=== PATIENT | male | born 1970 | race American Indian/Alaskan Native ===

== ENCOUNTER 2017-08-27 17:50 | Emergency (ER) | payer MEDICAID, OTHER ==
[2017-08-27 18:25] VITALS: BP 112/70
--- NOTE | 2017-08-27 19:33 | Emergency Department Report ---
- General Chief Complaint: Upper Respiratory Infection Stated Complaint: PAIN ACROSS EYES/SORE THROAT Time Seen by Provider: 08/27/17 19:11 Source: patient Mode of arrival: Ambulatory Limitations: No Limitations - History of Present Illness Initial Comments: 47yo MALE WITH ONE WEEK OF COUGH,FEVER,BURNING THROAT PAIN,HEADACHE. HE DENIES SICK CONTACTS . HE HAS BEEN TREATINF HIMSELF WITH OTC MEDICATIONS AND TOOK OFF TODAY FROM WORK. PT WOULD LIKE A WORK NOTE. HE IS A FORMER SMOKER MD Complaint: fever, cough, sore throat, rhinorrhea, nasal congestion -: Gradual, week(s) (1) Severity: mild Severity scale (0 -10): 2 Quality: burning, aching Consistency: intermittent Improves With: nothing Worsens With: nothing Associated Symptoms: fever, headache, rhinorrhea, nasal congestion, sore throat , cough Treatments Prior to Arrival: "cold medicine" - Related Data Previous Rx's Medication Instructions Recorded Last Taken Type ALBUTEROL Inhaler [Proair] 2 puff IH QID PRN #1 inhalation 08/27/17 Unknown Rx Dexamethasone [Decadron] 12 mg PO ONCE #3 tablet 08/27/17 Unknown Rx Allergies Allergy/AdvReac Type Severity Reaction Status Date / Time No Known Allergies Allergy Unverified 08/27/17 18:25 ED Review of Systems ROS: Stated complaint: PAIN ACROSS EYES/SORE THROAT Other details as noted in HPI Constitutional: fever. denies: chills Eyes: denies: eye pain, eye discharge, vision change ENT: congestion. denies: ear pain, throat pain Respiratory: denies: cough, shortness of breath, wheezing Cardiovascular: denies: chest pain, palpitations Endocrine: no symptoms reported Gastrointestinal: denies: abdominal pain, nausea, diarrhea Genitourinary: denies: urgency, dysuria Musculoskeletal: denies: back pain, joint swelling, arthralgia Skin: denies: rash, lesions Neurological: denies: headache, weakness, paresthesias Psychiatric: denies: anxiety, depression Hematological/Lymphatic: denies: easy bleeding, easy bruising ED Past Medical Hx - Past Medical History Previous Medical History?: No - Family History Family history: diabetes, hypertension - Social History Smoking Status: Former Smoker Substance Use Type: None - Medications Home Medications: Home Medications Medication Instructions Recorded Confirmed Last Taken Type ALBUTEROL Inhaler [Proair] 2 puff IH QID PRN #1 inhalation 08/27/17 Unknown Rx Dexamethasone [Decadron] 12 mg PO ONCE #3 tablet 08/27/17 Unknown Rx ED Physical Exam - General Limitations: No Limitations General appearance: alert, in no apparent distress - Head Head exam: Present: atraumatic, normocephalic - Eye Eye exam: Present: normal appearance - ENT ENT exam: Present: mucous membranes moist, other (erythema inoropharynx) - Neck Neck exam: Present: normal inspection - Respiratory Respiratory exam: Present: normal lung sounds bilaterally. Absent: respiratory distress - Cardiovascular Cardiovascular Exam: Present: regular rate, normal rhythm. Absent: systolic murmur, diastolic murmur, rubs, gallop - GI/Abdominal GI/Abdominal exam: Present: soft, normal bowel sounds - Rectal Rectal exam: Present: deferred - Extremities Exam Extremities exam: Present: full ROM. Absent: pedal edema - Back Exam Back exam: Present: full ROM - Neurological Exam Neurological exam: Present: alert, oriented X3 - Psychiatric Psychiatric exam: Present: normal affect, normal mood - Skin Skin exam: Present: warm, dry, intact, normal color. Absent: rash ED Course Vital Signs 08/27/17 18:21 Temperature 100 F H Pulse Rate 88 Respiratory 20 Rate Blood Pressure 112/70 O2 Sat by Pulse 100 Oximetry Critical care attestation.: If time is entered above; I have spent that time in minutes in the direct care of this critically ill patient, excluding procedure time. ED Disposition Clinical Impression: Bronchitis Disposition: DC-01 TO HOME OR SELFCARE Is pt being admited?: No Does the pt Need Aspirin: No Condition: Stable Instructions: Acute Bronchitis (ED) Prescriptions: ALBUTEROL Inhaler [Proair] 2 puff IH QID PRN #1 inhalation PRN Reason: Shortness Of Breath Dexamethasone [Decadron] 12 mg PO ONCE #3 tablet Referrals: PRIMARY CARE, [Primary Care Provider] - 3-5 Days Forms: Work/School Release Form(ED) Time of Disposition: 19:33
[2017-08-27] MEDS ORDERED: MOTRIN PO ONE (19:37)
[2017-08-27] MEDS ORDERED: TYLENOL PO ONE (19:37)
== END 2017-08-27 19:50 | disposition home or self-care (01) ==
LOC: ED 17:50
DX: J40 Bronchitis, not specified as acute or chronic (principal); Z87.891 Personal history of nicotine dependence
CPT/HCPCS: 99282

== ENCOUNTER 2017-11-20 14:01 | Emergency (ER) | payer BC, OTHER ==
[2017-11-20] MEDS ORDERED: ASPIRIN PO ONE (14:35)
[2017-11-20 14:59] LABS: Basophils % (Auto) 0.3 % (0.0-1.8); Eosinophils # (Auto) 0.1 K/mm3 (0.0-0.4); Eosinophils % (Auto) 1.8 % (0.0-4.3); Hematocrit 43.9 % (35.5-45.6); Hemoglobin 14.8 gm/dl (11.8-15.2); Lymphocytes # (Auto) 2.4 K/mm3 (1.2-5.4); Lymphocytes % (Auto) 45.2 % (13.4-35.0); Mean Corpuscular HGB Conc 34 % (32-34); Mean Corpuscular Hemoglobin 30 pg (28-32); Mean Corpuscular Volume 89 fl (84-94); Monocytes # (Auto) 0.5 K/mm3 (0.0-0.8); Monocytes % (Auto) 9.8 % (0.0-7.3); Platelet Count 202 K/mm3 (140-440); Red Blood Count 4.92 M/mm3 (3.65-5.03); Red Cell Distribution Width 13.8 % (13.2-15.2)
[2017-11-20 15:15] LABS: BUN/Creatinine Ratio 8; Blood Urea Nitrogen 7 mg/dL (9-20); Calcium 8.9 mg/dL (8.4-10.2); Hemolysis Index 4
[2017-11-21] MEDS ORDERED: TESSALON PERLES PO ONE (01:19)
[2017-11-21] MEDS ORDERED: TYLENOL #3 PO ONE (01:20)
[2017-11-21] MEDS ORDERED: MUCINEX ER PO ONE (01:20)
--- NOTE | 2017-11-21 01:26 | Emergency Department Report ---
HPI - General Chief Complaint: Chest Pain Time Seen by Provider: 11/21/17 00:23 - HPI HPI: The patient is a 47-year-old male who presents for evaluation of cough and chest pain. The patient reports a mild intermittent nonproductive cough since 2 AM last night, and oriented off achy in quality bilateral chest pain, mild, currently 5/10 in severity, exacerbated with coughing. He shares that he has a history of recurrent bronchitis. The patient denies trauma to the chest, syncope , dyspnea, hemoptysis, unilateral leg swelling, recent immobilization, history of DVT or PE, recent cancer. ED Past Medical Hx - Past Medical History Previous Medical History?: No - Surgical History Past Surgical History?: No - Social History Smoking Status: Never Smoker Substance Use Type: Alcohol - Medications Home Medications: Home Medications Medication Instructions Recorded Confirmed Last Taken Type ALBUTEROL Inhaler [Proair] 2 puff IH QID PRN #1 inhalation 08/27/17 Unknown Rx Dexamethasone [Decadron] 12 mg PO ONCE #3 tablet 08/27/17 Unknown Rx ALBUTEROL Inhaler [ProAir HFA 2 puff IH QID PRN #1 inhalation 11/21/17 Unknown Rx Inhaler] Benzonatate [Tessalon Perles] 100 mg PO Q8HR #14 capsule 11/21/17 Unknown Rx traMADol [Ultram 50 MG tab] 50 mg PO Q6HR PRN #15 tablet 11/21/17 Unknown Rx ED Review of Systems ROS: Stated complaint: CHEST TIGHTNESS Other details as noted in HPI Constitutional: denies: fever ENT: denies: throat or neck pain Respiratory: reports cough denies shortness of breath Cardiovascular: reports chest pain Endocrine: denies unexplained weight loss or gain Gastrointestinal: denies: abdominal pain, nausea Genitourinary: denies: dysuria Musculoskeletal: denies: leg swelling Skin: denies: rash Neurological: denies: headache Hematological/Lymphatic: denies: easy bleeding or easy bruising Psych: denies sadness or hopelessness Physical Exam - Physical Exam Vital Signs: Vital Signs 11/20/17 11/20/17 11/21/17 14:30 23:54 00:33 Temperature 98.8 F 98.0 F Pulse Rate 70 65 82 Respiratory 18 18 16 Rate Blood Pressure 130/90 125/77 O2 Sat by Pulse 99 98 97 Oximetry 11/21/17 00:36 Temperature Pulse Rate Respiratory 18 Rate Blood Pressure O2 Sat by Pulse 99 Oximetry Physical Exam: General: well-nourished, well-developed, no acute distress Head: Normocephalic, atraumatic Eyes: normal sclera ENT: Mucous membranes are pink and moist Neck: trachea midline, neck supple, No neck stiffness, no cervical adenopathy Respiratory: Breath sounds equal bilaterally, no wheezing, rales, or rhonchi Cardio: S1 and S2 present, no murmurs, rubs, gallops, capillary refill is brisk Abdomen: Normoactive bowel sounds, soft abdomen, no rigidity, no guarding or rebound tenderness Chest WALL/Back: No tenderness to palpation of the chest wall, no CVA tenderness with percussion Musc: No pitting edema Skin: No rash Neuro: no facial drooping, normal speech Psych: Normal affect ED Course Vital Signs 11/20/17 11/20/17 11/21/17 14:30 23:54 00:33 Temperature 98.8 F 98.0 F Pulse Rate 70 65 82 Respiratory 18 18 16 Rate Blood Pressure 130/90 125/77 O2 Sat by Pulse 99 98 97 Oximetry 11/21/17 00:36 Temperature Pulse Rate Respiratory 18 Rate Blood Pressure O2 Sat by Pulse 99 Oximetry ED Medical Decision Making - Lab Data Result diagrams: 11/20/17 14:42 11/20/17 14:42 - Medical Decision Making The patient was seen and examined by myself. The patient is placed on a automatic thread winder and continuous pulse ox. On initial evaluation, the patient was found to be in no distress. EKG was negative for findings suggestive of acute cardiac infarct. Labs and imaging are obtained. The patient is given Tessalon Perles for cough and Tylenol 3 for his pain. Chest x-ray is negative for pneumothorax, focal consolidation, pulmonary vascular congestion, pleural effusion, or other obvious acute cardiopulmonary disease process. Lab results were non-concerning including levels of troponin, WBC, hemoglobin, hematocrit, electrolytes, renal function. The patient was reevaluated and reported that their symptoms were markedly improved. As the patient has a TEJAL risk score less than 2, and a well's score less than 2, the patient is at low risk of ACS or pulmonary emboli etiology of their symptoms. The patient is stable for discharge with outpatient follow-up. The patient is given follow-up and return instructions. The patient expressed understanding and agreed with the plan. The patient is discharged in stable condition. Critical care attestation.: If time is entered above; I have spent that time in minutes in the direct care of this critically ill patient, excluding procedure time. ED Disposition Clinical Impression: Acute chest pain Bronchitis, acute Qualifiers: Bronchitis organism: unspecified organism Qualified Code(s): J20.9 - Acute bronchitis, unspecified Disposition: - TO HOME OR SELFCARE Is pt being admited?: No Does the pt Need Aspirin: No Condition: Stable Instructions: Chest Pain (ED), Acute Bronchitis (ED) Referrals: MORA ABEBE MD [Primary Care Provider] - 3-5 Days Time of Disposition: 01:
--- NOTE | 2017-11-21 01:28 | XRay Report ---
FINAL REPORT EXAM: XR CHEST 1V AP HISTORY: chest pain TECHNIQUE: An AP view of the chest was submitted. There are no previous studies available for comparison. FINDINGS: Heart size and mediastinum appear normal. The thoracic aorta is mildly tortuous. The lungs are clear. There is no evidence of congestion or pleural effusion. The bones and soft tissues appear well maintained IMPRESSION: No active chest disease.
[2017-11-21 03:07] VITALS: BP 114/77
== END 2017-11-21 03:07 | disposition home or self-care (01) ==
LOC: ED 14:01
DX: J20.9 Acute bronchitis, unspecified (principal)
CPT/HCPCS: 36415; 71045; 80048; 84484; 85025; 93005; 93010; 99284

== ENCOUNTER 2018-02-07 22:48 | Emergency (ER) | payer BC ==
[2018-02-07 22:57] VITALS: BP 135/83
--- NOTE | 2018-02-08 05:23 | Emergency Department Report ---
Vomiting/Diarrhea - HPI Chief Complaint: Nausea/Vomiting/Diarrhea Stated Complaint: ABD PAIN Time Seen by Provider: 02/08/18 04:53 Duration: Today Severity: mild Nausea/Vomiting Severity: Mild Diarrhea Severity: None Pain Location: Generalized (generalized cramp this morning but none now) Symptoms: Yes Able to Tolerate Fluids, Yes Recent Unusual Foods (patient said he ate a hot dog this morning and he had one episode of vomiting in and has not vomited since.), No Watery Diarrhea, No Bloody diarrhea, No Fever, No Recent Untreated Water, No Recent use of Antibiotics, No Family w/ Similar Symptoms, No Contacts w/ Similar Symptoms, No Rash, No Hematuria, No Recent URI Symptoms Other History: Patient here reports that he had hot dog this morning and he vomited times one large amount of vomit and then after that he did not vomit again. He said after he ate a hot dog he had some abdominal cramping but he is not having any at this moment. Pain at present is 0-10. Denies any diarrhea. Denies any cough, fever, chills, chest pain or shortness of breath. Patient said he is much better. He said he is able to tolerate fluid and he drank Coke without any vomiting. Denies that he is feeling better but he just wanted to be checked out. ED Review of Systems ROS: Stated complaint: ABD PAIN Other details as noted in HPI Comment: All other systems reviewed and negative Constitutional: no symptoms reported Eyes: denies: eye discharge, vision change ENT: denies: throat pain, congestion Respiratory: no symptoms reported Cardiovascular: denies: chest pain, palpitations, dyspnea on exertion, orthopnea , edema, syncope, paroxysmal nocturnal dyspnea Gastrointestinal: abdominal pain, nausea, vomiting. denies: diarrhea, constipation, hematemesis, melena, hematochezia Genitourinary: denies: dysuria, hematuria Musculoskeletal: denies: back pain, joint swelling, arthralgia, myalgia Skin: denies: rash Neurological: denies: headache, weakness, numbness, paresthesias, confusion, abnormal gait, vertigo ED Past Medical Hx - Past Medical History Previous Medical History?: Yes Additional medical history: bronchitis - Surgical History Past Surgical History?: No - Family History Family history: no significant - Social History Smoking Status: Current Every Day Smoker Substance Use Type: None - Medications Home Medications: Home Medications Medication Instructions Recorded Confirmed Last Taken Type ALBUTEROL Inhaler [Proair] 2 puff IH QID PRN #1 inhalation 08/27/17 Unknown Rx Dexamethasone [Decadron] 12 mg PO ONCE #3 tablet 08/27/17 Unknown Rx ALBUTEROL Inhaler [ProAir HFA 2 puff IH QID PRN #1 inhalation 11/21/17 Unknown Rx Inhaler] Benzonatate [Tessalon Perles] 100 mg PO Q8HR #14 capsule 11/21/17 Unknown Rx traMADol [Ultram 50 MG tab] 50 mg PO Q6HR PRN #15 tablet 11/21/17 Unknown Rx Ondansetron [Zofran Odt] 4 mg PO Q8H PRN #15 tab.rapdis 02/08/18 Unknown Rx Vomiting Diarrhea Exam - Exam General: Vital signs noted. No distress. Alert and acting appropriately. This is a 48-year-old male well-nourished well-developed in no acute distress. HEENT: Yes Moist Mucous Membranes, No Pharyngeal Erythema (no [employer]), No Pharyngeal Exudates (uvula midline, tongue is normal and oral airways patent), No Rhinorrhea, No Conjuctival Injection, No Frontal Tenderness, No Maxillary Tenderness Neck: No Adenopathy, No Rigidity (full range of motion and no C-spine tenderness. Supple) Lungs: Yes Clear Lung Sounds (CTAB), Yes Good Air Exchange, No Wheezes, No Stridor, No Cough, No Nasal Flaring, No Retractions, No Use of Accessory Muscles Heart exam: Regular: Yes (S1 and S2), Murmur: No, Tachycardia: No Abdomen: Tenderness: No (nontender to palpate in all quadrants), Peritoneal Signs: No, Distention: No, Hyperactive Bowel sounds: No (normal bowel sounds) Skin exam: Rash: No, Edema: No, Normal turgor: Yes (skin clean dry and intact no rash nor lesions) Neurologic: Alert and oriented, no deficits. Neurological: Alert and oriented 3, GCS of 15, speech is clear and fluid. No facial droop in an gait is normal. Musculoskeletal: Unremarkable. MSK/extremity: No clubbing, cyanosis or edema. +2 pulses all extremities and no neurovascular compromise. Full range of motion in all extremities. ED Course Vital Signs 02/07/18 02/07/18 22:52 23:39 Temperature 98.6 F 98.6 F Pulse Rate 74 74 Respiratory 16 16 Rate Blood Pressure 135/83 135/83 O2 Sat by Pulse 95 95 Oximetry - Reevaluation(s) Reevaluation #1: 02/08/18 05:38 Patient able to tolerate oral liquids in emergency room without any episode of vomiting or diarrhea. He denies any nausea. ED Medical Decision Making - Medical Decision Making ED course:Pt here report that he ate hotdogs and had one episode of vomiting and he is here to be checked out although he is feeling better. Patient did not vomit since he's been in emergency room and is able to tolerate oral liquids. Patient said that he was able to drink Coke after episode without any nausea or vomiting. Physical findings or normal. I discussed patient that he had probably had contaminated food and he vomited and felt better which is what his body supposed to do. He is no longer experiencing any nausea vomiting or abdominal pain. I discussed with him I will give him Zofran ODT prescription if he becomes nauseous but otherwise follow up with his primary care physician and if he does not have one to follow up at [facility]. Critical care attestation.: If time is entered above; I have spent that time in minutes in the direct care of this critically ill patient, excluding procedure time. ED Disposition Clinical Impression: Abdominal cramping, generalized Nausea with vomiting Qualifiers: Vomiting type: unspecified Vomiting Intractability: non-intractable Qualified Code(s): R11.2 - Nausea with vomiting, unspecified Disposition: DC-01 TO HOME OR SELFCARE Is pt being admited?: No Does the pt Need Aspirin: No Condition: Stable Instructions: Acute Nausea and Vomiting (ED), Abdominal Pain (ED) Additional Instructions: Please then diet over the next 72 hours to include banana, rice, applesauce and toast. Increase her fluid intake to include water and noncarbonated beverages. If his symptoms return, return to the emergency room otherwise follow-up with primary care physician or [facility]. Take Zofran if you become nauseous Prescriptions: Ondansetron [Zofran Odt] 4 mg PO Q8H PRN #15 tab.rapdis PRN Reason: Nausea And Vomiting Referrals: DIANDRA RIOS MD [Staff Physician] - 02/09/18 [facility] [Outside] - 02/09/18 Forms: Work/School Release Form(ED)
== END 2018-02-08 05:50 | disposition home or self-care (01) ==
LOC: ED 22:48
DX: R10.84 Generalized abdominal pain (principal); R11.2 Nausea with vomiting, unspecified; F17.200 Nicotine dependence, unspecified, uncomplicated
CPT/HCPCS: 99281

== ENCOUNTER 2018-04-13 07:11 | Emergency (ER) | payer BC ==
[2018-04-13 08:04] VITALS: BP 125/79
[2018-04-13] MEDS ORDERED: TORADOL IM ONE (09:40)
--- NOTE | 2018-04-13 09:43 | Emergency Department Report ---
ED Abdominal Pain HPI - General Chief Complaint: Medical Clearance Stated Complaint: LUMP IN ABD Source: patient Mode of arrival: Ambulatory Limitations: No Limitations - History of Present Illness Initial Comments: 48-year-old male with a past medical history bronchitis and no abdominal surgeries presents to the hospital complaints of abdominal pain since this morning. Patient has a bulging area above his umbilicus that was just noticed today. Pain is moderate, aching, constant, worse with palpation and movement. He denies nausea, vomiting, constipation, diarrhea, or fever. Denies any previous history of hernia. Severity scale (0 -10): 0 - Related Data Previous Rx's Medication Instructions Recorded Last Taken Type ALBUTEROL Inhaler [Proair] 2 puff IH QID PRN #1 inhalation 08/27/17 Unknown Rx RX: Dexamethasone [Decadron] 12 mg PO ONCE #3 tablet 08/27/17 Unknown Rx Benzonatate [Tessalon Perles] 100 mg PO Q8HR #14 capsule 11/21/17 Unknown Rx RX: ALBUTEROL Inhaler [ProAir HFA 2 puff IH QID PRN #1 inhalation 11/21/17 Unknown Rx Inhaler] RX: traMADol [Ultram 50 MG tab] 50 mg PO Q6HR PRN #15 tablet 11/21/17 Unknown Rx Ondansetron [Zofran Odt] 4 mg PO Q8H PRN #15 tab.rapdis 02/08/18 Unknown Rx Ibuprofen [Motrin] 800 mg PO Q8HR PRN #30 tablet 04/13/18 Unknown Rx Allergies Allergy/AdvReac Type Severity Reaction Status Date / Time No Known Allergies Allergy Verified 11/21/17 00:31 ED Review of Systems ROS: Stated complaint: LUMP IN ABD Other details as noted in HPI Comment: All other systems reviewed and negative ED Past Medical Hx - Past Medical History Previous Medical History?: No Additional medical history: bronchitis - Social History Smoking Status: Current Every Day Smoker - Medications Home Medications: Home Medications Medication Instructions Recorded Confirmed Last Taken Type ALBUTEROL Inhaler [Proair] 2 puff IH QID PRN #1 inhalation 08/27/17 Unknown Rx RX: Dexamethasone [Decadron] 12 mg PO ONCE #3 tablet 08/27/17 Unknown Rx Benzonatate [Tessalon Perles] 100 mg PO Q8HR #14 capsule 11/21/17 Unknown Rx RX: ALBUTEROL Inhaler [ProAir HFA 2 puff IH QID PRN #1 inhalation 11/21/17 Unknown Rx Inhaler] RX: traMADol [Ultram 50 MG tab] 50 mg PO Q6HR PRN #15 tablet 11/21/17 Unknown Rx Ondansetron [Zofran Odt] 4 mg PO Q8H PRN #15 tab.rapdis 02/08/18 Unknown Rx Ibuprofen [Motrin] 800 mg PO Q8HR PRN #30 tablet 04/13/18 Unknown Rx ED Physical Exam - General Limitations: No Limitations - Other Other exam information: General: No limitations, patient is alert in no acute distress Head exam: Atraumatic, normocephalic Eyes exam: Normal appearance ENT: Moist mucous membrane, normal oropharynx Neck exam: Normal inspection, full range of motion, no meningismus nontender Respiratory exam: Clear to auscultation bilateral, no wheezes, rales, crackles Cardiovascular: Normal rate and rhythm, normal heart sounds Abdomen: Soft, nondistended, probable hernia above the umbilicus that is reducible at the bedside. Residual defect and fascia palpated after reduction Extremity: Full range of motion normal inspection no deformity Back: Normal Inspection, full range of motion, no tenderness Neurologic: Alert, oriented x3, cranial nerves intact, no motor or sensory deficit Psychiatric: normal affect, normal mood Skin: Warm, dry, intact ED Course Vital Signs 04/13/18 07:59 Temperature 97.7 F Pulse Rate 68 Respiratory 16 Rate Blood Pressure 125/79 [Left] O2 Sat by Pulse 98 Oximetry ED Medical Decision Making - Lab Data Result diagrams: 04/13/18 10:12 04/13/18 10:09 Lab Results 04/13/18 04/13/18 Range/Units 10:09 10:12 WBC 5.4 (4.5-11.0) K/mm3 RBC 4.75 (3.65-5.03) M/mm3 Hgb 14.4 (11.8-15.2) gm/dl Hct 42.1 (35.5-45.6) % MCV 89 (84-94) fl MCH 30 (28-32) pg MCHC 34 (32-34) % RDW 14.1 (13.2-15.2) % Plt Count 195 (140-440) K/mm3 Lymph % (Auto) 54.7 H (13.4-35.0) % [place] % (Auto) 6.1 (0.0-7.3) % Eos % (Auto) 2.4 (0.0-4.3) % Baso % (Auto) 1.4 (0.0-1.8) % Lymph # 3.0 (1.2-5.4) K/mm3 [place] # 0.3 (0.0-0.8) K/mm3 Eos # 0.1 (0.0-0.4) K/mm3 Baso # 0.1 (0.0-0.1) K/mm3 Seg Neutrophils % 35.4 L (40.0-70.0) % Seg Neutrophils # 1.9 (1.8-7.7) K/mm3 Sodium 141 (137-145) mmol/L Potassium 4.2 (3.6-5.0) mmol/L Chloride 103.4 (98-107) mmol/L Carbon Dioxide 25 (22-30) mmol/L Anion Gap 17 mmol/L BUN 9 (9-20) mg/dL Creatinine 0.8 (0.8-1.5) mg/dL Estimated GFR > 60 ml/min BUN/Creatinine Ratio 11 % Glucose 89 (75-100) mg/dL Calcium 9.1 (8.4-10.2) mg/dL Total Bilirubin 0.20 (0.1-1.2) mg/dL AST 20 (5-40) units/L ALT 20 (7-56) units/L Alkaline Phosphatase 69 (35-129) units/L Total Protein 7.2 (6.3-8.2) g/dL Albumin 4.2 (3.9-5) g/dL Albumin/Globulin Ratio 1.4 % - Radiology Data Radiology results: report reviewed CT scan of abdomen and pelvis without IV contrast: History: Supraumbilical hernia is reducible. Findings: Minimal fibrosis and scarring at the pleura in the paravertebral region left lower lobe. Also there is tiny calcified and noncalcified nodule in the region. No pleural or pericardial effusion. Normal liver spleen pancreas and gallbladder. Normal adrenals. 3.6 cm hypodensity upper pole left kidney suggestive of a cyst. Incompletely distended urinary bladder with thick wall. No free intraperitoneal fluid or air. No evidence of adenopathy. Normal aorta. Gaseous colon with large volume stool in colon. Fluid-filled loops of small bowel without bowel wall thickening. No bowel distention. No evidence of appendicitis or diverticulitis. Small umbilical hernia containing fat. Impression: Cyst left kidney. Small umbilical hernia containing fat. Fluid filled loops of small bowel probably normal or related to enteritis. Additional findings as detailed above. - Medical Decision Making Umbilical hernia Reducible Post reduction CT shows small umbilical hernia containing fat Patient had pain relief for reduction and Toradol Outpatient surgery f/u will be provided for definitive management since there are no signs of strangulation, incarceration, or sepsis at this time - Differential Diagnosis supraumbilical hernia, incarceration, reducible, lipoma Critical Care Time: No Critical care attestation.: If time is entered above; I have spent that time in minutes in the direct care of this critically ill patient, excluding procedure time. ED Disposition Clinical Impression: Hernia, umbilical Qualifiers: Obstruction and gangrene presence: without obstruction or gangrene Qualified Code(s): K42.9 - Umbilical hernia without obstruction or gangrene Disposition: DC- TO HOME OR SELFCARE Is pt being admited?: No Does the pt Need Aspirin: No Condition: Stable Instructions: Umbilical Hernia (ED) Additional Instructions: Take the medication as prescribed. Return if symptoms worsen as indicated by her discharge instructions. Follow-up with the surgeon provided to discuss surgical options and treatment. Prescriptions: Ibuprofen [Motrin] 800 mg PO Q8HR PRN #30 tablet PRN Reason: Pain Referrals: CECILIA TRUJILLO DO [Staff Physician] - 3-5 Days Time of Disposition: 10:54
--- NOTE | 2018-04-13 10:15 | Cat Scan Report ---
CT scan of abdomen and pelvis without IV contrast: History: Supraumbilical hernia is reducible. Findings: Minimal fibrosis and scarring at the pleura in the paravertebral region left lower lobe. Also there is tiny calcified and noncalcified nodule in the region. No pleural or pericardial effusion. Normal liver spleen pancreas and gallbladder. Normal adrenals. 3.6 cm hypodensity upper pole left kidney suggestive of a cyst. Incompletely distended urinary bladder with thick wall. No free intraperitoneal fluid or air. No evidence of adenopathy. Normal aorta. Gaseous colon with large volume stool in colon. Fluid-filled loops of small bowel without bowel wall thickening. No bowel distention. No evidence of appendicitis or diverticulitis. Small umbilical hernia containing fat. Impression: Cyst left kidney. Small umbilical hernia containing fat. Fluid filled loops of small bowel probably normal or related to enteritis. Additional findings as detailed above.
[2018-04-13 10:35] LABS: Basophils # (Auto) 0.1 K/mm3 (0.0-0.1); Basophils % (Auto) 1.4 % (0.0-1.8); Eosinophils # (Auto) 0.1 K/mm3 (0.0-0.4); Eosinophils % (Auto) 2.4 % (0.0-4.3); Hematocrit 42.1 % (35.5-45.6); Hemoglobin 14.4 gm/dl (11.8-15.2); Lymphocytes % (Auto) 54.7 % (13.4-35.0); Mean Corpuscular HGB Conc 34 % (32-34); Mean Corpuscular Hemoglobin 30 pg (28-32); Mean Corpuscular Volume 89 fl (84-94); Monocytes # (Auto) 0.3 K/mm3 (0.0-0.8); Monocytes % (Auto) 6.1 % (0.0-7.3); Platelet Count 195 K/mm3 (140-440); Red Blood Count 4.75 M/mm3 (3.65-5.03); Red Cell Distribution Width 14.1 % (13.2-15.2)
[2018-04-13 10:51] LABS: Alanine Aminotransferase 20 units/L (7-56); Albumin 4.2 g/dL (3.9-5); BUN/Creatinine Ratio 11; Blood Urea Nitrogen 9 mg/dL (9-20); Calcium 9.1 mg/dL (8.4-10.2); Hemolysis Index 15
== END 2018-04-13 11:21 | disposition home or self-care (01) ==
LOC: ED 07:11
DX: K42.9 Umbilical hernia without obstruction or gangrene (principal); F17.200 Nicotine dependence, unspecified, uncomplicated
CPT/HCPCS: 36415; 74176; 80053; 85025; 96372; 99284; J1885

== ENCOUNTER 2021-06-10 12:58 | Emergency (ER) | payer BC | END 2021-06-10 13:00 | disposition left against medical advice (07) | LOC: ED 12:58 | DX: R10.9 Unspecified abdominal pain (principal); Z53.21 Procedure and treatment not carried out due to patient leaving prior to being seen by health care provider ==

== ENCOUNTER 2021-11-24 18:10 | Emergency (ER) | payer SELFPAY ==
[2021-11-24] MEDS ORDERED: ONDANSETRON 4 MG ODT TAB PO ONE (22:36)
[2021-11-24] MEDS ORDERED: IBUPROFEN 400 MG TAB PO ONE (22:36)
--- NOTE | 2021-11-24 22:36 | Emergency Department Report ---
ED General Adult HPI - General Chief complaint: Abdominal Pain Stated complaint: HERNIA PUI?: No Time Seen by Provider: 11/24/21 22:21 Source: patient, RN notes reviewed, old records reviewed Mode of arrival: Ambulatory Limitations: No Limitations - History of Present Illness Initial comments: The patient was evaluated in the emergency department for symptoms described in the history of present illness. He/she was evaluated in the context of the global COVID-19 pandemic, which necessitated consideration that the patient jostin ht be at risk for infection with the virus that causes COVID-19. Institutional protocols and algorithms that pertain to the evaluation of patients at risk for COVID-19 are in a state of rapid change based on information released by regulatory bodies including the CDC and federal and state organizations. These policies and algorithms were followed during the patient's care in the emergency department. Please note that these policies, procedures and recommendations changed on a rapid basis. Patient is a 51-year-old gentleman with a known history of right-sided inguinal hernia, who presents to the ER today with a complaint of right-sided inguinal hernia that is protruding. Patient is defecating and passing gas. He has no nausea, vomiting or diarrhea at this time. He denies testicular pain. He denies additional injuries and complaints. He does have mild throbbing pain, which increases with palpation and decreases with rest. It does not radiate anywhere. He reports he was supposed to follow-up as an outpatient for elective surgical correction, but secondary to various issues, including the COVID pandemic, change in insurance status, and relocation of his original [facility], he has not been able to follow-up as an outpatient -: Gradual Location: right (Right groin/inguinal region) Radiation: non-radiation Quality: aching Consistency: constant Improves with: rest Worsens with: medication Associated Symptoms: denies other symptoms - Related Data Previous Rx's Medication Instructions Recorded Last Taken Type Albuterol Mdi (or & Nicu Only) 2 puff IH QID PRN #1 inhalation 08/27/17 Unknown Rx [Proair] Albuterol Mdi (or & Nicu Only) 2 puff IH QID PRN #1 inhalation 11/21/17 Unknown Rx [ProAir HFA Inhaler] Ondansetron [Zofran Odt] 4 mg PO Q8H PRN #15 tab.rapdis 02/08/18 Unknown Rx Ibuprofen [Motrin] 800 mg PO Q8HR PRN #30 tablet 04/13/18 Unknown Rx Ibuprofen [Motrin 600 MG tab] 600 mg PO Q6H PRN #12 tablet 09/09/18 Unknown Rx Acetaminophen [Non-Aspirin Extra 500 mg PO Q6HR PRN #30 tablet 11/24/21 Unknown Rx Strength] Ibuprofen [Motrin] 600 mg PO Q8H PRN #30 tablet 11/24/21 Unknown Rx Ondansetron [Zofran Odt] 4 mg PO Q8HR PRN #20 tab.rapdis 11/24/21 Unknown Rx Allergies Allergy/AdvReac Type Severity Reaction Status Date / Time No Known Allergies Allergy Verified 11/21/17 00:31 ED Review of Systems ROS: Stated complaint: HERNIA Other details as noted in HPI Constitutional: denies: fever Respiratory: denies: cough, shortness of breath Cardiovascular: denies: chest pain Gastrointestinal: denies: abdominal pain, vomiting, diarrhea Genitourinary: other (Right-sided inguinal hernia). denies: testicular pain Musculoskeletal: denies: back pain Neurological: denies: weakness ED Past Medical Hx - Past Medical History Previous Medical History?: Yes Additional medical history: bronchitis - Surgical History Past Surgical History?: No - Social History Smoking Status: Current Some Day Smoker Substance Use Type: Alcohol - Medications Home Medications: Home Medications Medication Instructions Recorded Confirmed Last Taken Type Albuterol Mdi (or & Nicu Only) 2 puff IH QID PRN #1 inhalation 08/27/17 Unknown Rx [Proair] Albuterol Mdi (or & Nicu Only) 2 puff IH QID PRN #1 inhalation 11/21/17 Unknown Rx [ProAir HFA Inhaler] Ondansetron [Zofran Odt] 4 mg PO Q8H PRN #15 tab.rapdis 02/08/18 Unknown Rx Ibuprofen [Motrin] 800 mg PO Q8HR PRN #30 tablet 04/13/18 Unknown Rx Ibuprofen [Motrin 600 MG tab] 600 mg PO Q6H PRN #12 tablet 09/09/18 Unknown Rx Acetaminophen [Non-Aspirin Extra 500 mg PO Q6HR PRN #30 tablet 11/24/21 Unknown Rx Strength] Ibuprofen [Motrin] 600 mg PO Q8H PRN #30 tablet 11/24/21 Unknown Rx Ondansetron [Zofran Odt] 4 mg PO Q8HR PRN #20 tab.ivan 11/24/21 Unknown Rx ED Physical Exam - General Limitations: No Limitations General appearance: alert, in no apparent distress - Head Head exam: Present: atraumatic, normocephalic - Eye Eye exam: Present: normal appearance, EOMI. Absent: nystagmus - ENT ENT exam: Present: normal exam, normal orophraynx, mucous membranes moist, normal external ear exam - Neck Neck exam: Present: normal inspection, full ROM. Absent: tenderness, meningismus - Respiratory Respiratory exam: Present: normal lung sounds bilaterally. Absent: respiratory distress, wheezes, rales, rhonchi, stridor, decreased breath sounds - Cardiovascular Cardiovascular Exam: Present: regular rate, normal rhythm, normal heart sounds. Absent: bradycardia, tachycardia, irregular rhythm, systolic murmur, diastolic murmur, rubs, gallop - GI/Abdominal GI/Abdominal exam: Present: soft, hernia (There is a reducible right-sided inguinal hernia which is minimally tender. Chaperoned by STEPAN KRISHNA). Absent: distended, tenderness, guarding, rebound, rigid, pulsatile mass - Rectal Rectal exam: Present: deferred - exam: Present: normal inspection, other (Reducible right-sided inguinal hernia. Chaperoned bySTEPAN KRISHNA) External exam: Present: normal external exam - Extremities Exam Extremities exam: Present: normal inspection, full ROM, other (2+ pulses noted in the bilateral upper and lower extremities. There is no palpable cord. negative Homans sign. Muscular compartments are soft. The pelvis is stable.). Absent: pedal edema, calf tenderness - Back Exam Back exam: Present: normal inspection, full ROM. Absent: tenderness, CVA tenderness (R), CVA tenderness (L), paraspinal tenderness, vertebral tenderness - Neurological Exam Neurological exam: Present: alert, oriented X3, normal gait, other (No facial droop. Tongue midline. Extraocular movements intact bilaterally. Facial sensation intact to light touch in V1, V2, V3 distribution bilaterally. 5 and a 5 strength in 4 extremities. Sensation intact to light touch in 4 extremities.). Absent: motor sensory deficit - Psychiatric Psychiatric exam: Present: normal affect, normal mood - Skin Skin exam: Present: warm, dry, intact, normal color. Absent: rash ED Course Vital Signs 11/24/21 11/24/21 20:06 23:02 Temperature 98.1 F 98.7 F Pulse Rate 68 72 Respiratory 18 17 Rate Blood Pressure 136/87 Blood Pressure 112/82 [Right] O2 Sat by Pulse 98 100 Oximetry ED Medical Decision Making - Lab Data Vital Signs 11/24/21 20:06 Temperature 98.1 F Pulse Rate 68 Respiratory 18 Rate Blood Pressure 136/87 O2 Sat by Pulse 98 Oximetry - Radiology Data Radiology results: report reviewed, image reviewed Prior CT scan and imaging studies reviewed appreciate - Medical Decision Making Differential diagnosis, including the not limited to: Right-sided inguinal hernia, reducible Assessment and plan: 51-year-old gentleman, who is afebrile, with reassuring vital signs, with a soft benign abdomen, and reducible right-sided inguinal hernia. He is defecating and passing gas, and in no acute distress. Discussed diet and lifestyle modifications, recommendation to follow-up with an outpatient surgeon for elective surgical correction. He articulates understanding. Return precautions reviewed. Critical care attestation.: If time is entered above; I have spent that time in minutes in the direct care of this critically ill patient, excluding procedure time. ED Disposition Clinical Impression: Inguinal hernia, right Disposition: 01 HOME / SELF CARE / HOMELESS Is pt being admited?: No Does the pt Need Aspirin: No Condition: Stable Instructions: Inguinal Hernia, Adult, [id number] Additional Instructions: Patient is found to have right-sided reducible inguinal hernia. Drink 6 cups of water per day. Consume plenty of fiber, vegetables, and lean protein. Avoid consumption of sugar, starch, simple carbohydrates, processed foods. Patient may take the pain medication and nausea medication as needed and directed. Recommend that patient follow-up with a general surgeon, such as Alma Yuen, within the next 2 weeks for outpatient evaluation for elective surgical correction. Please return to the emergency room right away with new pain, worsened pain, migration of pain, projectile vomiting, change in mental status, confusion, inability tolerate liquid feeds, new, worsened or different symptoms not present on the initial emergency room evaluation Prescriptions: Ibuprofen [Motrin] 600 mg PO Q8H PRN #30 tablet PRN Reason: Pain Acetaminophen [Non-Aspirin Extra Strength] 500 mg PO Q6HR PRN #30 tablet PRN Reason: Pain , Severe (7-10) Ondansetron [Zofran Odt] 4 mg PO Q8HR PRN #20 tab.rapdis PRN Reason: Nausea Referrals: CECILIA YUEN DO [Staff Physician] - 3-5 Days Forms: Work/School Release Form(ED)
[2021-11-24 23:03] VITALS: BP 112/82
== END 2021-11-24 23:00 | disposition home or self-care (01) ==
LOC: ED 18:10
DX: K40.90 Unilateral inguinal hernia, without obstruction or gangrene, not specified as recurrent (principal); F17.200 Nicotine dependence, unspecified, uncomplicated; Z72.89 Other problems related to lifestyle; Z79.899 Other long term (current) drug therapy
CPT/HCPCS: 99282; J3490; Q0162

== ENCOUNTER 2022-01-02 07:59 | Emergency (ER) | payer OTHER ==
[2022-01-02] MEDS ORDERED: METOCLOPRAMIDE 10 MG/2 ML INJ IV ONE (09:16)
[2022-01-02] MEDS ORDERED: diphenhydrAMINE 50 MG/ML VIAL IV ONE (09:16)
[2022-01-02] MEDS ORDERED: FAMOTIDINE 20 MG/2 ML INJ IV ONE (09:16)
[2022-01-02] MEDS ORDERED: DICYCLOMINE 20 MG TAB PO ONE (09:17)
[2022-01-02] MEDS ORDERED: LIDOCAINE VISCOUS 2% 15 ML ORAL LIQD MM ONE (09:18)
[2022-01-02] MEDS ORDERED: SODIUM CHLORIDE 0.9% 1000 ML 1,000 ML IV ONE (09:18)
[2022-01-02] MEDS ORDERED: chlorproMAZINE 25 MG in SODIUM CHLORIDE 0.9% 50 ML IV ONE (10:00)
--- NOTE | 2022-01-02 10:23 | Emergency Department Report ---
ED Abdominal Pain HPI - General Chief Complaint: Abdominal Pain Stated Complaint: HERNIA/VOMITING/HICCUPS Time Seen by Provider: 01/02/22 08:53 Source: patient Mode of arrival: Ambulatory Limitations: No Limitations - History of Present Illness Initial Comments: This is a 51-year-old male nontoxic, well nourished in appearance, no acute signs of distress presents to the ED with c/o of nausea and vomiting, hiccups and abdominal pain 2 days. Patient also stated has right groin pain intermittent which denies pain today. Stated has history of "groin hernia". Patient describes vomiting as food content and yellow gastric acid. Patient describes abdominal pain as cramping and aching with level of 8/10 epigastric upper abdominal area. Patient denies chest pain, short of breath, fever, hemoptysis, blood in stool, chills, headache, stiff neck, numbness or tingling. Patient denies any diarrhea or constipation. Denies any blood in stool. Patient denies any recent travels. Patient denies any allergies. MD Complaint: abdominal pain -: days(s) Location: epigastric Radiation: LUQ, RUQ Migration to: no migration Severity: mild Severity scale (0 -10): 8 Quality: cramping Consistency: constant Improves With: nothing Worsens With: nothing Associated Symptoms: nausea, vomiting. denies: diarrhea, fever, chills, constipation, dysuria, hematemesis, hematochezia, melena, hematuria, anorexia, syncope - Related Data Previous Rx's Medication Instructions Recorded Last Taken Type Albuterol Mdi (or & Nicu Only) 2 puff IH QID PRN #1 inhalation 08/27/17 Unknown Rx [Proair] Albuterol Mdi (or & Nicu Only) 2 puff IH QID PRN #1 inhalation 11/21/17 Unknown Rx [ProAir HFA Inhaler] Ondansetron [Zofran Odt] 4 mg PO Q8H PRN #15 tab.rapdis 02/08/18 Unknown Rx Ibuprofen [Motrin] 800 mg PO Q8HR PRN #30 tablet 04/13/18 Unknown Rx Ibuprofen [Motrin 600 MG tab] 600 mg PO Q6H PRN #12 tablet 09/09/18 Unknown Rx Acetaminophen [Non-Aspirin Extra 500 mg PO Q6HR PRN #30 tablet 11/24/21 Unknown Rx Strength] Ibuprofen [Motrin] 600 mg PO Q8H PRN #30 tablet 11/24/21 Unknown Rx Ondansetron [Zofran Odt] 4 mg PO Q8HR PRN #20 tab.rapdis 11/24/21 Unknown Rx Doxycycline Hyclate [Doxycycline 100 mg PO Q12HR #14 tab 01/02/22 Unknown Rx Hyclate TAB] Naproxen 500 mg PO Q12H PRN #12 tab 01/02/22 Unknown Rx Ondansetron [Zofran Odt] 4 mg PO Q8HR PRN #12 tab.rapdis 01/02/22 Unknown Rx Allergies Allergy/AdvReac Type Severity Reaction Status Date / Time No Known Allergies Allergy Verified 01/02/22 08:31 ED Review of Systems ROS: Stated complaint: HERNIA/VOMITING/HICCUPS Other details as noted in HPI Comment: All other systems reviewed and negative Constitutional: denies: chills, fever Eyes: denies: eye pain, eye discharge, vision change ENT: denies: ear pain, throat pain Respiratory: denies: cough, shortness of breath, wheezing Cardiovascular: denies: chest pain, palpitations Endocrine: no symptoms reported Gastrointestinal: abdominal pain, nausea, vomiting. denies: diarrhea Genitourinary: denies: urgency, dysuria Musculoskeletal: denies: back pain, joint swelling, arthralgia Skin: denies: rash, lesions Neurological: denies: headache, weakness, paresthesias Psychiatric: denies: anxiety, depression Hematological/Lymphatic: denies: easy bleeding, easy bruising ED Past Medical Hx - Past Medical History Additional medical history: bronchitis - Social History Smoking Status: Current Some Day Smoker Substance Use Type: Alcohol - Medications Home Medications: Home Medications Medication Instructions Recorded Confirmed Last Taken Type Albuterol Mdi (or & Nicu Only) 2 puff IH QID PRN #1 inhalation 08/27/17 Unknown Rx [Proair] Albuterol Mdi (or & Nicu Only) 2 puff IH QID PRN #1 inhalation 11/21/17 Unknown Rx [ProAir HFA Inhaler] Ondansetron [Zofran Odt] 4 mg PO Q8H PRN #15 tab.rapdis 02/08/18 Unknown Rx Ibuprofen [Motrin] 800 mg PO Q8HR PRN #30 tablet 04/13/18 Unknown Rx Ibuprofen [Motrin 600 MG tab] 600 mg PO Q6H PRN #12 tablet 09/09/18 Unknown Rx Acetaminophen [Non-Aspirin Extra 500 mg PO Q6HR PRN #30 tablet 11/24/21 Unknown Rx Strength] Ibuprofen [Motrin] 600 mg PO Q8H PRN #30 tablet 11/24/21 Unknown Rx Ondansetron [Zofran Odt] 4 mg PO Q8HR PRN #20 tab.rapdis 11/24/21 Unknown Rx Doxycycline Hyclate [Doxycycline 100 mg PO Q12HR #14 tab 01/02/22 Unknown Rx Hyclate TAB] Naproxen 500 mg PO Q12H PRN #12 tab 01/02/22 Unknown Rx Ondansetron [Zofran Odt] 4 mg PO Q8HR PRN #12 tab.rapdis 01/02/22 Unknown Rx ED Physical Exam - General Limitations: No Limitations General appearance: alert, in no apparent distress - Head Head exam: Present: atraumatic, normocephalic - Eye Eye exam: Present: normal appearance - ENT ENT exam: Present: normal exam - Neck Neck exam: Present: normal inspection, full ROM. Absent: tenderness, meningismus, lymphadenopathy - Respiratory Respiratory exam: Present: normal lung sounds bilaterally. Absent: respiratory distress, wheezes, rales, rhonchi, stridor, chest wall tenderness, accessory muscle use, decreased breath sounds, prolonged expiratory - Cardiovascular Cardiovascular Exam: Present: regular rate, normal rhythm, normal heart sounds. Absent: bradycardia, tachycardia, irregular rhythm, systolic murmur, diastolic murmur, rubs, gallop - GI/Abdominal GI/Abdominal exam: Present: soft, tenderness (epigastric/RUQ), normal bowel sounds, hernia (right inguinal hernia that is retractable. No gangrene or abnormality on exam noted). Absent: distended, guarding, rebound, rigid - Extremities Exam Extremities exam: Present: normal inspection, full ROM - Back Exam Back exam: Present: normal inspection, full ROM. Absent: tenderness, CVA tenderness (R), CVA tenderness (L), muscle spasm, paraspinal tenderness, vertebral tenderness, rash noted - Neurological Exam Neurological exam: Present: alert, oriented X3, normal gait - Psychiatric Psychiatric exam: Present: normal affect, normal mood - Skin Skin exam: Present: warm, dry, intact, normal color. Absent: rash ED Course Vital Signs 01/02/22 08:29 Temperature 98.5 F Pulse Rate 92 H Respiratory 16 Rate Blood Pressure 142/82 [Left] O2 Sat by Pulse 100 Oximetry - Reevaluation(s) Reevaluation #1: 01/02/22 10:24 Patient is speaking in full sentences with no signs of distress noted. ED Medical Decision Making - Lab Data Result diagrams: 01/02/22 09:44 01/02/22 09:44 Lab Results 01/02/22 01/02/22 01/02/22 Range/Units 09:44 09:44 Unknown WBC 5.2 (4.5-11.0) K/mm3 RBC 5.21 H (3.65-5.03) M/mm3 Hgb 16.0 H (11.8-15.2) gm/dl Hct 45.8 H (35.5-45.6) % MCV 88 (84-94) fl MCH 31 (28-32) pg MCHC 35 H (32-34) % RDW 13.6 (13.2-15.2) % Plt Count 251 (140-440) K/mm3 Lymph % (Auto) 22.7 (13.4-35.0) % [place] % (Auto) 8.2 H (0.0-7.3) % Eos % (Auto) 1.6 (0.0-4.3) % Baso % (Auto) 0.4 (0.0-1.8) % Lymph # (Auto) 1.2 (1.2-5.4) K/mm3 [place] # (Auto) 0.5 (0.0-0.8) K/mm3 Eos # (Auto) 0.1 (0.0-0.4) K/mm3 Baso # (Auto) 0.0 (0.0-0.1) K/mm3 Seg Neutrophils % 67.1 (40.0-70.0) % Seg Neutrophils # 3.7 (1.8-7.7) K/mm3 Sodium 139 (137-145) mmol/L Potassium 4.1 (3.6-5.0) mmol/L Chloride 94.3 L (98-107) mmol/L Carbon Dioxide 24 (22-30) mmol/L Anion Gap 25 mmol/L BUN 21 H (9-20) mg/dL Creatinine 1.3 (0.8-1.3) mg/dL Estimated GFR > 60 ml/min BUN/Creatinine Ratio 16 % Glucose 121 H (75-100) mg/dL Calcium 10.1 (8.4-10.2) mg/dL Total Bilirubin 0.80 (0.1-1.2) mg/dL AST 40 (5-40) units/L ALT 51 (7-56) units/L Alkaline Phosphatase 87 (35-129) units/L Total Protein 8.0 (6.3-8.2) g/dL Albumin 4.8 (3.9-5) g/dL Albumin/Globulin Ratio 1.5 % Lipase 13 (13-60) units/L Urine Color Suzanne (Yellow) Urine Turbidity Slightly-cloudy (Clear) Urine pH 5.0 (5.0-7.0) Ur Specific Girard 1.042 H (1.003-1.030) Urine Protein >500 (Negative) mg/dL Urine Glucose (UA) Neg (Negative) mg/dL Urine Ketones Tr (Negative) mg/dL Urine Blood Neg (Negative) Urine Nitrite Neg (Negative) Urine Bilirubin Sm (Negative) Urine Ictotest Negative (Negative) Urine Urobilinogen 2.0 (<2.0) mg/dL Ur Leukocyte Esterase Neg (Negative) Urine WBC (Auto) 28.0 H (0.0-6.0) /HPF Urine RBC (Auto) 12.0 (0.0-6.0) /HPF U Epithel Cells (Auto) 2.0 (0-13.0) /HPF Urine Bacteria (Auto) 1+ (Negative) /HPF Hyaline Casts 41 /LPF Urine Mucus 3+ /HPF - Medical Decision Making This is a 51-year-old male that presents with right inguinal hernia with UTI. Patient is stable and was examined by me. Negative signs of symptoms of appendicitis. Labs obtained. UA obtained. CT of abdomen obtained with IV and p.o. contrast and dictated by the radiologist. Patient is notified of the report with no questions noted by the patient. Patient received Rocephin IV and patient be discharged with doxycycline. Vital signs are stable prior to discharge. Patient received medical treatment in the ED which patient stated symptoms has resovled and subsided. Was instructed note to operate any machinery due to possible drowsiness and stated someone will drive the patient home. A by mouth challenge has been obtained and patient tolerated well with no nausea vomiting. Patient was notified of strict precatuions of appendictis symptoms and to return to the ED if symptoms occurs as soon as possible. Patient was also instructed to Follow-up with a primary care doctor in 3-5 days or if symptoms worsen and continue return to emergency room as soon as possible. At time of discharge, the patient does not seem toxic or ill in appearance. No acute signs of distress noted. Patient agrees to discharge treatment plan of care. No further questions noted by the patient. Critical care attestation.: If time is entered above; I have spent that time in minutes in the direct care of this critically ill patient, excluding procedure time. ED Disposition Clinical Impression: Right inguinal hernia UTI (urinary tract infection) Qualifiers: Urinary tract infection type: acute cystitis Hematuria presence: with hematuria Qualified Code(s): N30.01 - Acute cystitis with hematuria Disposition: HOME / SELF CARE / HOMELESS Is pt being admited?: No Does the pt Need Aspirin: No Condition: Stable Instructions: Inguinal Hernia, Adult, [id number] Additional Instructions: Follow-up with a primary care doctor in 3-5 days or if symptoms worsen and continue return to emergency room as soon as possible. Prescriptions: Doxycycline Hyclate [Doxycycline Hyclate TAB] 100 mg PO Q12HR #14 tab Naproxen 500 mg PO Q12H PRN #12 tab PRN Reason: Pain , Severe (7-10) Ondansetron [Zofran Odt] 4 mg PO Q8HR PRN #12 tab.rapdis PRN Reason: Nausea Referrals: PRIMARY CARE, [Primary Care Provider] - 3-5 Days MARY VARGAS MD [Staff Physician] - 3-5 Days Forms: Work/School Release Form(ED) Time of Disposition: 14:11
[2022-01-02 11:12] LABS: Hematocrit 45.8 % (35.5-45.6); Mean Corpuscular HGB Conc 35 % (32-34); Mean Corpuscular Volume 88 fl (84-94); Platelet Count 251 K/mm3 (140-440); Red Blood Count 5.21 M/mm3 (3.65-5.03); Red Cell Distribution Width 13.6 % (13.2-15.2)
[2022-01-02 11:22] LABS: Basophils % (Auto) 0.4 % (0.0-1.8); Eosinophils # (Auto) 0.1 K/mm3 (0.0-0.4); Eosinophils % (Auto) 1.6 % (0.0-4.3); Lymphocytes # (Auto) 1.2 K/mm3 (1.2-5.4); Lymphocytes % (Auto) 22.7 % (13.4-35.0); Monocytes # (Auto) 0.5 K/mm3 (0.0-0.8); Monocytes % (Auto) 8.2 % (0.0-7.3)
[2022-01-02 11:42] LABS: Alanine Aminotransferase 51 units/L (7-56); Albumin 4.8 g/dL (3.9-5); BUN/Creatinine Ratio 16; Blood Urea Nitrogen 21 mg/dL (9-20); Calcium 10.1 mg/dL (8.4-10.2); Hemolysis Index 16
[2022-01-02 12:04] LABS: Bacteria,Urine 1+ /HPF (Negative); Bilirubin,Urine SM (Negative); Blood,Urine NEG (Negative); Color,Urine Amber (Yellow); Hyaline Casts,Urine 41 /LPF; Mucus,Urine 3+ /HPF
[2022-01-02 12:09] LABS: Protein,Urine >500 mg/dL (Negative)
[2022-01-02 12:15] LABS: Ictotest,Urine Negative (Negative)
[2022-01-02] MEDS ORDERED: cefTRIAXone/NS 1 GM/50 ML 1 GM/50 ML BAG IV ONE (12:32)
--- NOTE | 2022-01-02 13:59 | Cat Scan Report ---
CT ABDOMEN AND PELVIS WITH CONTRAST INDICATION: n/v abd pain Po and IV contrast gastroview omnipaque 300 100ml. TECHNIQUE: Axial CT images were obtained through the abdomen and pelvis after 100 cc Omni [address] scans at this location are performed using CT dose reduction for ALARA by means of automated expos ure control. COMPARISON: None available. FINDINGS: LOWER CHEST: No significant abnormality. LIVER: No significant abnormality. GALLBLADDER: No significant abnormality. BILE DUCTS: No significant abnormality. PANCREAS: No significant abnormality. SPLEEN: No significant abnormality. ADRENALS: No significant abnormality. RIGHT KIDNEY and URETER: No significant abnormality. LEFT KIDNEY and URETER: Simple 4.7 cm left upper pole renal cyst. STOMACH and SMALL BOWEL: Fluid-filled borderline dilated loops of mid to distal small bowel with enha ncing mucosa characteristic for gastroenteritis. No transition point COLON: Fluid-filled right colon from gastroenteritis APPENDIX: Normal. PERITONEUM: No free fluid. No free air. No fluid collection. LYMPH NODES: No significant adenopathy. AORTA and ARTERIES: No significant abnormality. IVC and VEINS: No significant abnormality. URINARY BLADDER: No significant abnormality. REPRODUCTIVE ORGANS: No significant abnormality. ADDITIONAL FINDINGS: Moderate-sized fat-containing right inguinal hernia with small amount of fluid i n the right inguinal canal. SKELETAL SYSTEM: No significant abnormality. IMPRESSION: 1. Moderate-sized fat-containing right inguinal hernia containing small amount of fluid. 2. Probable gastroenteritis. Signer Name: Chad Johnston MD Signed: 01/02/2022 1:55 PM Workstation Name: [id number]
[2022-01-02 14:28] VITALS: BP 106/69
== END 2022-01-02 14:29 | disposition home or self-care (01) ==
LOC: ED 07:59
DX: K40.90 Unilateral inguinal hernia, without obstruction or gangrene, not specified as recurrent (principal); N39.0 Urinary tract infection, site not specified; F17.200 Nicotine dependence, unspecified, uncomplicated
CPT/HCPCS: 36415; 74177; 80053; 81001; 83690; 85025; 87086; 96361; 96365; 96367; 96375; 99284; J0696; J1200; J2765; J3230; J3490; J7030; Q9967; Q0162

== ENCOUNTER 2022-05-11 00:42 | Emergency (ER) | payer OTHER ==
[2022-05-11] MEDS ORDERED: CLINDAMYCIN 150 MG/ML VIAL 6 ML IM ONE ×2 (05:23→06:10)
[2022-05-11] MEDS ORDERED: dexAMETHasone 20 MG/5 ML VIAL IM ONE (05:23)
[2022-05-11] MEDS ORDERED: KETOROLAC 30 MG/1 ML INJ IM ONE (05:23)
[2022-05-11 06:23] VITALS: BP 111/72
--- NOTE | 2022-05-11 06:41 | Emergency Department Report ---
ED General Adult HPI - General Chief complaint: Sore Throat Stated complaint: SORE THROAT Time Seen by Provider: 05/11/22 06:37 Source: patient Mode of arrival: Ambulatory Limitations: No Limitations - History of Present Illness Initial comments: Patient 52-year-old male with history of hypertension, [id number] smoking who presents for sore throat x2 days. Patient states low-grade fever of 100.1 at home. Primary symptom is pain with swallowing described as burning at 5/10. There is no muffled voice. There is no air hunger no wheezing no stridor. Symptoms are exacerbated by swallowing. Symptoms are relieved by nothing tried. He denies shortness of breath. Patient is tolerating p.o. liquids at this time. Severity scale (0 -10): 6 - Related Data Previous Rx's Medication Instructions Recorded Last Taken Type Albuterol Mdi (or & Nicu Only) 2 puff IH QID PRN #1 inhalation 08/27/17 Unknown Rx [Proair] Albuterol Mdi (or & Nicu Only) 2 puff IH QID PRN #1 inhalation 11/21/17 Unknown Rx [ProAir HFA Inhaler] Ondansetron [Zofran Odt] 4 mg PO Q8H PRN #15 tab.rapdis 02/08/18 Unknown Rx Ibuprofen [Motrin] 800 mg PO Q8HR PRN #30 tablet 04/13/18 Unknown Rx Ibuprofen [Motrin 600 MG tab] 600 mg PO Q6H PRN #12 tablet 09/09/18 Unknown Rx Acetaminophen [Non-Aspirin Extra 500 mg PO Q6HR PRN #30 tablet 11/24/21 Unknown Rx Strength] Ibuprofen [Motrin] 600 mg PO Q8H PRN #30 tablet 11/24/21 Unknown Rx Ondansetron [Zofran Odt] 4 mg PO Q8HR PRN #20 tab.rapdis 11/24/21 Unknown Rx Doxycycline Hyclate [Doxycycline 100 mg PO Q12HR #14 tab 01/02/22 Unknown Rx Hyclate TAB] Naproxen 500 mg PO Q12H PRN #12 tab 01/02/22 Unknown Rx Ondansetron [Zofran Odt] 4 mg PO Q8HR PRN #12 tab.rapdis 01/02/22 Unknown Rx Amoxicillin/K Clav Tab [Augmentin 1 tab PO BID 7 Days #14 tab 05/11/22 Unknown Rx 875 mg] Ibuprofen [Motrin 800 MG tab] 800 mg PO Q8HR PRN #30 tablet 05/11/22 Unknown Rx dexAMETHasone [Decadron] 4 mg PO Q12H 5 Days #10 tablet 05/11/22 Unknown Rx Allergies Allergy/AdvReac Type Severity Reaction Status Date / Time No Known Allergies Allergy Verified 01/02/22 08:31 ED Review of Systems ROS: Stated complaint: SORE THROAT Other details as noted in HPI Constitutional: chills, malaise Eyes: denies: eye pain, eye discharge, vision change ENT: throat pain, congestion. denies: ear pain Respiratory: denies: cough, shortness of breath, wheezing Cardiovascular: denies: chest pain, palpitations Endocrine: no symptoms reported Gastrointestinal: denies: abdominal pain, nausea, diarrhea Genitourinary: as per HPI Musculoskeletal: denies: back pain, joint swelling, arthralgia Skin: denies: rash, lesions Neurological: denies: headache, weakness, paresthesias, vertigo Psychiatric: denies: anxiety, depression Hematological/Lymphatic: denies: easy bleeding, easy bruising ED Past Medical Hx - Past Medical History Previous Medical History?: Yes Additional medical history: bronchitis - Social History Smoking Status: Unknown if ever smoked - Medications Home Medications: Home Medications Medication Instructions Recorded Confirmed Last Taken Type Albuterol Mdi (or & Nicu Only) 2 puff IH QID PRN #1 inhalation 08/27/17 Unknown Rx [Proair] Albuterol Mdi (or & Nicu Only) 2 puff IH QID PRN #1 inhalation 11/21/17 Unknown Rx [ProAir HFA Inhaler] Ondansetron [Zofran Odt] 4 mg PO Q8H PRN #15 tab.rapdis 02/08/18 Unknown Rx Ibuprofen [Motrin] 800 mg PO Q8HR PRN #30 tablet 04/13/18 Unknown Rx Ibuprofen [Motrin 600 MG tab] 600 mg PO Q6H PRN #12 tablet 09/09/18 Unknown Rx Acetaminophen [Non-Aspirin Extra 500 mg PO Q6HR PRN #30 tablet 11/24/21 Unknown Rx Strength] Ibuprofen [Motrin] 600 mg PO Q8H PRN #30 tablet 11/24/21 Unknown Rx Ondansetron [Zofran Odt] 4 mg PO Q8HR PRN #20 tab.rapdis 11/24/21 Unknown Rx Doxycycline Hyclate [Doxycycline 100 mg PO Q12HR #14 tab 01/02/22 Unknown Rx Hyclate TAB] Naproxen 500 mg PO Q12H PRN #12 tab 01/02/22 Unknown Rx Ondansetron [Zofran Odt] 4 mg PO Q8HR PRN #12 tab.rapdis 01/02/22 Unknown Rx Amoxicillin/K Clav Tab [Augmentin 1 tab PO BID 7 Days #14 tab 05/11/22 Unknown Rx 875 mg] Ibuprofen [Motrin 800 MG tab] 800 mg PO Q8HR PRN #30 tablet 05/11/22 Unknown Rx dexAMETHasone [Decadron] 4 mg PO Q12H 5 Days #10 tablet 05/11/22 Unknown Rx ED Physical Exam - General Limitations: No Limitations General appearance: alert, in no apparent distress - Head Head exam: Present: normocephalic, normal inspection - Eye Eye exam: Present: EOMI Pupils: Present: normal accommodation - ENT ENT exam: Present: mucous membranes moist, TM's normal bilaterally, normal external ear exam - Expanded ENT Exam Expanded Ear exam: Present: normal external inspection Throat exam: Positive: tonsillar erythema, tonsillomegaly, tonsillar exudate, other (Uvula is midline visualize midline there are no lesions there is moderate exudate to bilateral tonsillar however there is no muffled speech no stridor no wheezing airway is patent.). Negative: R peritonsillar mass, L peritonsillar mass - Neck Neck exam: Present: normal inspection, full ROM, lymphadenopathy. Absent: tenderness, meningismus, thyromegaly - Respiratory Respiratory exam: Present: normal lung sounds bilaterally. Absent: respiratory distress, wheezes, stridor, chest wall tenderness - Cardiovascular Cardiovascular Exam: Present: regular rate, normal rhythm, normal heart sounds. Absent: systolic murmur, diastolic murmur, rubs, gallop - GI/Abdominal GI/Abdominal exam: Present: soft, normal bowel sounds. Absent: distended, tenderness, bruit, hernia - Rectal Rectal exam: Present: deferred - Extremities Exam Extremities exam: Present: normal inspection, full ROM, normal capillary refill - Back Exam Back exam: Present: normal inspection, full ROM. Absent: CVA tenderness (R), CVA tenderness (L) - Neurological Exam Neurological exam: Present: alert, oriented X3, CN II-XII intact, normal gait - Psychiatric Psychiatric exam: Present: normal affect, normal mood - Skin Skin exam: Present: warm, dry, intact, normal color. Absent: rash ED Course Vital Signs 05/11/22 05/11/22 00:45 04:00 Temperature 98.3 F Pulse Rate 87 70 Respiratory 18 16 Rate Blood Pressure 115/70 Blood Pressure 111/72 [Right] O2 Sat by Pulse 97 98 Oximetry ED Medical Decision Making - Medical Decision Making Symptoms improved with medications given in ED. Plan DC to home with prescriptions. Follow-up with ENT doctor in 2 to 3 days. Return to emergency d epartment should symptoms worsen. Patient is currently tolerating p.o. intake airway remains patent there is no wheezing no stridor patient is with no acute distress. Patient DC'd home in stable condition at this time. Critical care attestation.: If time is entered above; I have spent that time in minutes in the direct care of this critically ill patient, excluding procedure time. ED Disposition Clinical Impression: Tonsillitis Disposition: HOME / SELF CARE / HOMELESS Is pt being admited?: No Does the pt Need Aspirin: No Condition: Stable Instructions: Tonsillitis, [id number] Additional Instructions: Take medications as prescribed, follow-up with your doctor in 2 to 3 days. Return to emergency department should symptoms worsen. Prescriptions: Amoxicillin/K Clav Tab [Augmentin 875 mg] 1 tab PO BID 7 Days #14 tab dexAMETHasone [Decadron] 4 mg PO Q12H 5 Days #10 tablet Ibuprofen [Motrin 800 MG tab] 800 mg PO Q8HR PRN #30 tablet PRN Reason: pain fever Referrals: CELI RENEE MD [Staff Physician] - 2-3 Days Forms: Work/School Release Form(ED) Time of Disposition: 06:44
== END 2022-05-11 06:49 | disposition home or self-care (01) ==
LOC: ED 00:42
DX: J03.90 Acute tonsillitis, unspecified (principal)
CPT/HCPCS: 96372; 99282; J1100; J1885